=== PATIENT | female | born 1960 | race Caucasian/White ===

== ENCOUNTER 2021-08-06 14:15 | Emergency (ER) | payer OTHER ==
[2021-08-06 14:53] VITALS: TEMP 98.4; BMI 17.9
[2021-08-06] MEDS ORDERED: CASIRIVIMAB/IMDEVIMAB 10 ML in SODIUM CHLORIDE 100 ML IVPB ONE (15:25)
[2021-08-06 16:35] LABS: BASO % 0.6 % (0-2.0); EOS % 0.3 % (0-4.5); HEMATOCRIT 36.2 % (32.4-45.2); HEMOGLOBIN 12.6 GM/dL (10.7-15.3); LYMPH % 18.6 % (8-40); MCH 33.7 pg (25.7-33.7); MCHC 34.7 g/dl (32.0-36.0); MEAN CELL VOLUME 97.1 fl (80-96); MEAN PLT VOLUME 7.1 fl (7.5-11.1); NEUT % 71.5 % (42.8-82.8); PLATELET COUNT 242 10^3/uL (134-434); RBC 3.72 M/mm3 (3.60-5.2); WHITE BLOOD COUNT 5.2 K/mm3 (4.0-10.0)
[2021-08-06 17:02] LABS: CREATININE 0.6 mg/dL (0.55-1.3)
[2021-08-06 17:08] LABS: BLOOD UREA NITROGEN 25.3 mg/dL (7-18)
[2021-08-06 20:16] VITALS: BP 119/64; PULSE 75
== END 2021-08-06 18:00 | disposition home or self-care (01) ==
LOC: JCOVINFU 14:15
DX: U07.1 COVID-19 (principal)
CPT/HCPCS: 36415; 80048; 85025; 99284-25; Q0240